=== PATIENT | female | born 1960 | race African-American/Black ===

== ENCOUNTER 2023-12-09 12:04 | Emergency (ER) | payer OTHER ==
[2023-12-09 12:23] VITALS: BP 177/69; PULSE 105; RESP 16; TEMP 98.2; BMI 63.3
[2023-12-09] MEDS ORDERED: KETOROLAC TROMETHAMINE 30 MG/1 ML VIAL IM ONE (14:19)
[2023-12-09] MEDS ORDERED: KETOROLAC TROMETHAMINE 30 MG/1 ML VIAL ONE (14:21)
== END 2023-12-09 16:14 | disposition home or self-care (01) ==
LOC: JERFT 12:04
PROC: 3E0233Z Introduction of Anti-inflammatory into Muscle, Percutaneous Approach (ICD-10-PCS; principal; 2023-12-09)
DX: M25.562 Pain in left knee (principal); M25.572 Pain in left ankle and joints of left foot; W01.0XXA Fall on same level from slipping, tripping and stumbling without subsequent striking against object, initial encounter; X50.1XXA Overexertion from prolonged static or awkward postures, initial encounter
CPT/HCPCS: 73564-TC-LT-FY; 73610-TC-LT-FY; 73630-TC-LT; 99284-25